=== PATIENT | female | born 1985 | race Caucasian/White ===

== ENCOUNTER 2023-06-28 18:20 | Emergency (ER) | payer BC, SELFPAY ==
[2023-06-28 18:45] VITALS: BP 122/84; PULSE 86; RESP 16; TEMP 36.6; O2SAT 98; BMI 35.6
--- NOTE | 2023-06-28 22:43 | ED.SKABFB1 ---
HPI - Skin/Abscess/Foreign Bdy General Chief complaint: Skin/Abscess/Foreign Body Stated complaint: RASH Time Seen by Provider: 06/28/23 18:54 Source: patient Mode of arrival: walk-in History of Present Illness HPI narrative: Patient presents to emergency department with a complaint of a rash. Patient states he started having a rash since Tuesday where they were out weeding. States the rash has been spreading. They saw an urgent care and was started on some steroids tapering from 40 mg since and they have not had any improvement. She is very itchy. She has been taking Benadryl. He denies any sore throat fever, headache, chest pain, shortness of breath. She denies any throat or perioral swelling.? The patient states when she went to the urgent care they wanted to give her an injection but they didn't have any so they just given the prescriptions for the pills. They're wondering if there is something else we can do for them. Patient's daughter is positive for strep and she has been sharing drinks with her. She wants to make sure there is nothing else going on. Related Data Previous Rx's Medication Instructions Recorded famotidine 20 mg tablet (Pepcid) 20 mg PO DAILY #10 tabs 06/28/23 hydroxyzine HCl 50 mg tablet 50 mg PO Q8H PRN itching #20 tabs 06/28/23 prednisone 10 mg tablets in a dose 10 mg PO DAILY #48 ea 06/28/23 pack Allergies Allergy/AdvReac Type Severity Reaction Status Date / Time No Known Drug Allergies Allergy Verified 06/28/23 18:45 Review of Systems ROS Status of ROS 10 or more systems reviewed and unremarkable except as noted in history and below Exam Narrative Exam Narrative: Nurses notes and vital signs reviewed and patient is not hypoxic. General: Nontoxic, Well-appearing and in no apparent distress.? Skin:? Warm, dry, no pallor noted.? Diffuse macular papular rash and linear vesicles consistent with contact dermatitis to the arms, neck, and legs. No signs of bacterial Or viral infection Head:? Normocephalic, atraumatic. Neck:? Supple, non-tender. Eye:? Pupils are equal, round and EOMI. No scleral icterus. Ears, Nose, Mouth, and Throat:? TM clear, Mild posterior oropharynx erythema, no nasal mucosal hypertrophy, uvula is mid-line Oral mucosa is moist Cardiovascular:? Regular Rate and Rhythm without murmur, gallop or rub. Respiratory:? No accessory muscle use or respiratory distress. Lungs are clear to auscultation, no wheezing, rales or rhonchi Chest Wall:? no tenderness Back: No midline thoracic or lumbar vertebral tenderness. No CVA tenderness Musculoskeletal:? normal ROM, no calf or popliteal tenderness, no lower extremity edema/swelling GI:? Abdomen is soft, non-distended.? Normal bowel sounds. No masses appreciated. No tenderness to palpation. No rebound, guarding, or rigidity noted. Neurological:? A&O x4.? No cranial nerve dysfunction observed.? No truncal ataxia. Moves all extremities. Sensation intact. Psychiatric:? Cooperative and interactive. Normal mood and affect. Constitutional Vital Signs, click to edit/add: Last Vital Signs Temp 97.8 F 06/28/23 18:45 Pulse 86 06/28/23 18:45 Resp 16 06/28/23 18:45 BP 122/84 06/28/23 18:45 Pulse Ox 98 06/28/23 18:45 O2 Del Method Room Air 06/28/23 22:52 Course Vital Signs Vital signs: Vital Signs Temperature 97.8 F 06/28/23 18:45 Pulse Rate 86 06/28/23 18:45 Respiratory Rate 16 06/28/23 18:45 Blood Pressure 122/84 06/28/23 18:45 Pulse Oximetry 98 06/28/23 18:45 Oxygen Delivery Method Room Air 06/28/23 18:45 Temperature 97.8 F 06/28/23 18:45 Pulse Rate 86 06/28/23 18:45 Respiratory Rate 16 06/28/23 18:45 Blood Pressure 122/84 06/28/23 18:45 Pulse Oximetry 98 06/28/23 18:45 Oxygen Delivery Method Room Air 06/28/23 22:52 MDM - Skin/Abscess/Foreign Bdy MDM Narrative Medical decision making narrative: Patient was given prednisone taper for 18 days.Given a prescription for Atarax, and Pepcid. Discussed with the patient that there is no difference between injected steroid and an oral steroid.? Patient was concerned for strep exposure. Patient states she has a sore throat. She has been sharing drinks with her daughter and sleeping with her and she is positive for strep. She will take the injection of Bicillin L-A. ? At this time the patient is without objective evidence of an acute process requiring hospitalization or inpatient management. The patient has remained hemodynamically stable. No additional indication for emergent studies at this time. I answered all questions. Discussed discharge instructions including standard anticipatory guidance and what should prompt a return to the emergency department, including if they get worse are not getting better or develops any new or concerning symptoms. I've given them specific time frame in which to follow-up, and who to follow-up with. The patient demonstrates understanding. Patient is nontoxic and stable for discharge with outpatient follow-up. This note was created with the assistance of a speech recognition program. Although the intention is to generate documents that actually reflects the content of the visit, no guarantees can be provided that every mistake has been identified and corrected by editing. Discharge Plan Discharge Chief Complaint: Skin/Abscess/Foreign Body Clinical Impression: Contact dermatitis, Strep throat exposure Patient Disposition: Home, Self-Care Time of Disposition Decision: 23:00 Condition: Good Mode of Transportation: Private Vehicle Prescriptions / Home Meds: New hydroxyzine HCl 50 mg tablet 50 mg PO Q8H PRN (Reason: itching) Qty: 20 0RF famotidine [Pepcid] 20 mg tablet 20 mg PO DAILY Qty: 10 0RF prednisone 10 mg tablets,dose pack 10 mg PO DAILY Qty: 48 0RF Rx Instructions: [id number], [id number] Instructions: Contact Dermatitis (ED), Strep Throat (ED) Stand Alone Forms: Portal Instructions Referrals: Physician,Non-Staff, MD [Primary Care Provider] - 1 week Discharge Date/Time: 06/29/23 00:04
--- NOTE | 2023-06-28 22:53 | PC.NURSE ---
calamine lotion applied prior to arrival
[2023-06-28] MEDS: PREDNISONE 20 MG TABLET 60 MG PO (23:25)
[2023-06-28] MEDS: FAMOTIDINE 20 MG TABLET PO (23:25)
[2023-06-28] MEDS: HYDROXYZINE HCL 25 MG TABLET 50 MG PO (23:25)
[2023-06-28] MEDS: PENICILLIN G BENZATHINE 1,200,000 UNIT/2 ML SYRINGE 1200000 UNIT IM (23:54)
== END 2023-06-29 00:04 | disposition home or self-care (01) ==
PROVIDERS: Emergency Provider Emergency Medicine
DX: L25.9 Unspecified contact dermatitis, unspecified cause (principal); Z20.818 Contact with and (suspected) exposure to other bacterial communicable diseases
CPT/HCPCS: 99284